=== PATIENT | female | born 1975 | race American Indian/Alaskan Native ===

== ENCOUNTER 2018-09-03 13:51 | Outpatient (CLI) | payer MEDICAID ==
[2018-09-03 13:44] VITALS: BP 139/79
[~2018-09-03 13:51] MED LIST: CYCL-1 PO; DIAZ2TAB PO; NAPR375T PO; NO HOME MEDS
== END 2018-09-03 15:00 | disposition home or self-care (01) ==
LOC: ORTHO 13:51
PROVIDERS: ATTEND Nurse Practitioner Family
DX: S82.892A Other fracture of left lower leg, initial encounter for closed fracture (principal); F17.210 Nicotine dependence, cigarettes, uncomplicated; F31.9 Bipolar disorder, unspecified; F90.9 Attention-deficit hyperactivity disorder, unspecified type; Z56.0 Unemployment, unspecified; Z88.5 Allergy status to narcotic agent; Z88.8 Allergy status to other drugs, medicaments and biological substances; W01.0XXA Fall on same level from slipping, tripping and stumbling without subsequent striking against object, initial encounter; Y93.89 Activity, other specified; Y92.89 Other specified places as the place of occurrence of the external cause; Y99.2 Volunteer activity
CPT/HCPCS: 99213; A4590

== ENCOUNTER 2018-09-17 14:31 | Outpatient (CLI) | payer MEDICAID ==
[2018-09-17 14:30] VITALS: BP 109/76
== END 2018-09-17 14:53 | disposition home or self-care (01) ==
LOC: ORTHO 14:31
PROVIDERS: ATTEND Nurse Practitioner Family
DX: M77.32 Calcaneal spur, left foot (principal); F17.210 Nicotine dependence, cigarettes, uncomplicated; F31.9 Bipolar disorder, unspecified; Z56.0 Unemployment, unspecified; Z88.5 Allergy status to narcotic agent
CPT/HCPCS: 73610; 99213

== ENCOUNTER 2018-10-08 11:39 | Outpatient (CLI) | payer MEDICAID ==
[2018-10-08 11:38] VITALS: BP 129/89
== END 2018-10-08 12:04 | disposition home or self-care (01) ==
LOC: ORTHO 11:39
PROVIDERS: ATTEND Nurse Practitioner Family
DX: S93.432D Sprain of tibiofibular ligament of left ankle, subsequent encounter (principal); F17.210 Nicotine dependence, cigarettes, uncomplicated; Z56.0 Unemployment, unspecified; Z88.5 Allergy status to narcotic agent; Z88.6 Allergy status to analgesic agent; Z88.8 Allergy status to other drugs, medicaments and biological substances; W01.0XXD Fall on same level from slipping, tripping and stumbling without subsequent striking against object, subsequent encounter
CPT/HCPCS: 73610; 99213

== ENCOUNTER 2019-06-10 01:42 | Emergency (ER) | payer MEDICAID ==
[~2019-06-10] VITALS: Ht 162.6 cm; Wt 96.0 kg
[2019-06-10 01:45] VITALS: BP 177/95
[2019-06-10] MEDS ORDERED: ketorolac trometh inj. 60 MG/2 ML VIAL IM ONE (02:45)
== END 2019-06-10 02:50 | disposition home or self-care (01) ==
LOC: ER 01:42
DX: K08.89 Other specified disorders of teeth and supporting structures (principal); G89.29 Other chronic pain; Z98.890 Other specified postprocedural states; Z88.5 Allergy status to narcotic agent; Z79.899 Other long term (current) drug therapy; Z56.0 Unemployment, unspecified
CPT/HCPCS: 96372; 99283; J1885

== ENCOUNTER 2019-09-25 16:53 | Emergency (ER) | payer MEDICAID ==
[~2019-09-25] VITALS: Ht 165.1 cm; Wt 90.0 kg
[2019-09-25 17:03] VITALS: BP 122/82
[2019-09-25] MEDS ORDERED: IBUP-1984 PO (18:52)
== END 2019-09-25 18:58 | disposition home or self-care (01) ==
LOC: ER 16:54
DX: M79.671 Pain in right foot (principal); G89.29 Other chronic pain; M54.9 Dorsalgia, unspecified; F10.99 Alcohol use, unspecified with unspecified alcohol-induced disorder; Y93.9 Activity, unspecified; Y99.8 Other external cause status; Y92.9 Unspecified place or not applicable; W50.1XXA Accidental kick by another person, initial encounter; Z98.890 Other specified postprocedural states; Z88.5 Allergy status to narcotic agent; Z56.0 Unemployment, unspecified
CPT/HCPCS: 73630; 99283

== ENCOUNTER 2022-07-14 19:13 | Emergency (ER) | payer MEDICAID ==
[~2022-07-14] VITALS: Ht 162.6 cm; Wt 90.9 kg
[2022-07-14 19:23] VITALS: BP 160/114
== END 2022-07-14 20:59 | disposition left against medical advice (07) ==
LOC: ER 19:14
DX: M54.9 Dorsalgia, unspecified (principal); Z53.21 Procedure and treatment not carried out due to patient leaving prior to being seen by health care provider

== ENCOUNTER 2024-12-18 14:25 | Emergency (ER) | payer MEDICAID ==
[~2024-12-18] VITALS: Ht 157.5 cm; Wt 100.0 kg
[2024-12-18 14:32] VITALS: BP 142/81; PULSE 102; TEMP 97; O2SAT 97
[2024-12-18] MEDS ORDERED: HYDROmorphone 1 mg/ml syringe IV ONE (16:15)
[2024-12-18] MEDS ORDERED: ketorolac trometh 15mg/ml vial 15 MG/ML ML IV ONE (16:15)
[2024-12-18] MEDS ORDERED: ondansetron/PF 4mg/2ml inj IV ONE (16:15)
[2024-12-18] MEDS ORDERED: ketorolac trometh 15mg/ml vial 15 MG/ML ML IM ONE (17:00)
[2024-12-18] MEDS: HYDROmorphone 1 mg/ml syringe IM ONE (17:22)
[2024-12-18] MEDS: ondansetron 4mg rapidly disintigrating tab PO ONE (17:22)
[2024-12-18] MEDS: ketorolac trometh 30MG/ML vial 30 MG/ML VIAL IM ONE (17:23)
[2024-12-18 18:19] VITALS: RESP 16
[2024-12-18] MEDS ORDERED: OXYC10TA57 PO (18:45)
[2024-12-19] MEDS ORDERED: CYCL-394 PO (19:30)
== END 2024-12-18 19:43 | disposition home or self-care (01) ==
LOC: ER 14:25
DX: G89.18 Other acute postprocedural pain (principal); G89.29 Other chronic pain; M54.9 Dorsalgia, unspecified; Z98.1 Arthrodesis status; Z98.890 Other specified postprocedural states; Z56.0 Unemployment, unspecified; Z72.89 Other problems related to lifestyle; Z88.5 Allergy status to narcotic agent
CPT/HCPCS: 96372; 99284; J1171; J1885

== ENCOUNTER 2024-12-19 18:12 | Emergency (ER) | payer MEDICAID ==
[~2024-12-19] VITALS: Ht 162.6 cm; Wt 83.6 kg
[~2024-12-19 18:12] MED LIST changes: +OXYC10TA57 PO
[2024-12-19 18:15] VITALS: BP 180/95; PULSE 94; RESP 16; TEMP 98.2; O2SAT 95
[2024-12-19] MEDS ORDERED: CYCL-394 PO (19:30)
== END 2024-12-19 19:34 | disposition home or self-care (01) ==
LOC: ER 18:13
DX: F11.23 Opioid dependence with withdrawal (principal); G89.29 Other chronic pain; M54.9 Dorsalgia, unspecified; Z88.5 Allergy status to narcotic agent; Z79.899 Other long term (current) drug therapy; Z56.0 Unemployment, unspecified; Z98.890 Other specified postprocedural states; Z72.89 Other problems related to lifestyle
CPT/HCPCS: 99283